=== PATIENT | female | born 1990 | race Caucasian/White ===

== ENCOUNTER 2017-11-10 02:33 | Emergency (ER) | payer BC ==
[~2017-11-10] VITALS: Ht 177.8 cm; Wt 75.0 kg
[2017-11-10 02:36] VITALS: BP 138/77
== END 2017-11-10 05:31 | disposition left against medical advice (07) ==
LOC: ER 02:33
DX: Z53.21 Procedure and treatment not carried out due to patient leaving prior to being seen by health care provider (principal); F90.9 Attention-deficit hyperactivity disorder, unspecified type; F17.200 Nicotine dependence, unspecified, uncomplicated